=== PATIENT | male | born 1980 | race Caucasian/White ===

== ENCOUNTER 2018-10-21 13:43 | Emergency (ER) | payer OTHER ==
[~2018-10-21] VITALS: Ht 167.6 cm; Wt 82.1 kg
[2018-10-21 13:53] VITALS: BP 131/86; Ht 167.6 cm; Wt 82.1 kg
== END 2018-10-21 14:24 | disposition home or self-care (01) ==
LOC: ED 13:43
DX: L72.3 Sebaceous cyst (principal)